=== PATIENT | female | born 1965 | race Caucasian/White ===

== ENCOUNTER → 2017-04-01 | Outpatient (CLI) | payer OTHER ==
--- NOTE | 2017-04-01 15:25 | RADRPT ---
PROCEDURE: XR Hip. CLINICAL INDICATION: Bilateral hip pain. TECHNIQUE: AP and frog lateral views of the bilateral hips were performed. COMPARISON: None. FINDINGS: There is no acute fracture, dislocation, or other osteoarticular abnormality. The alignment is norm al and the soft tissues unremarkable. The osseous mineralization is within normal limits. There is an intrauterine device overlying the pelvis. IMPRESSION: 1. Unremarkable bilateral hip x-rays series. RPTAT: GG .Jono Rowland MD, Date Time Electronically viewed and signed by .Jono Rowland MD, MD on 04/01/2017 15:25 .P/
== END | disposition home or self-care (01) ==
LOC: HKI 14:15
PROVIDERS: ATTEND Orthopaedic Surgery
DX: M25.551 Pain in right hip (principal); M25.552 Pain in left hip; S73.192A Other sprain of left hip, initial encounter
CPT/HCPCS: 73523; G0463